=== PATIENT | male | born 1950 | race Two or more races ===

== ENCOUNTER 2025-05-17 05:29 | Inpatient (IN) | payer MEDICARE, OTHER ==
[~2025-05-17] VITALS: Ht 175.3 cm; Wt 81.2 kg
[2025-05-17] MEDS ORDERED: ONDANSETRON HCL/PF 4 MG/2 ML VIAL ONE (06:51)
[2025-05-17] MEDS: IV NS 0.9% 1,000 ML BAG IV ONE ×2 (06:53→08:10)
[2025-05-17] MEDS: ONDANSETRON HCL/PF 4 MG/2 ML VIAL IVP ONE (06:53)
[2025-05-17] MEDS ORDERED: CEFTRIAXONE 1GM BAG (ER ONLY) 50 ML IV ONE (07:06)
[2025-05-17] MEDS: CEFTRIAXONE 1 G in IV D5W 50 ML IV ONE (07:07)
[2025-05-17 07:10] LABS: PLATELET COUNT (AUTO) 531 K/uL (150-450); RED BLOOD CELL COUNT(AUTO) 4.38 MIL/uL (4.5-6.0); RED CELL DISTRIBUTION WIDTH 16.0 % (11.5-15.0); WHITE BLOOD COUNT (AUTO) 28.3 K/uL (4.3-11.0)
[2025-05-17 07:20] LABS: CALCIUM, SERUM 10.1 mg/dL (8.5-10.1); CREATININE 2.6 mg/dL (0.6-1.3); SODIUM SERUM 138.0 mmol/L (136-145); UREA NITROGEN, BLOOD 64.0 mg/dL (7-18)
[2025-05-17 07:26] LABS: ASPARTATE AMINOTRANSFERASE 19.0 U/L (15-37); TOTAL PROTEIN, SERUM 7.3 g/dL (6.4-8.2)
[2025-05-17 07:29] LABS: APPEARANCE,URINE TURBID (CLEAR); BLOOD, URINE TRACE-INTA Ery/uL (NEGATIVE); LEUKOCYTE ESTERASE ,URINE 2+ (NEGATIVE); NITRITE, URINE POSITIVE (NEGATIVE); UGLUCOSE NEGATIVE (NEGATIVE)
[2025-05-17 07:37] LABS: INR 1.09 (0.91-1.10)
[2025-05-17 07:38] LABS: ADD URINE CULTURE YES; SQUAMOUS EPITHELIAL CELL,UR Rare /HPF (None Seen)
[2025-05-17 07:43] LABS: LACTIC ACID 3.5 mmol/L (0.4-2.0)
[2025-05-17] MEDS: FLAGYL/NS RTU 500 MG/100 ML PIGGYBACK IV ONE (08:10)
[2025-05-17 08:15] VITALS: O2SAT 98
[2025-05-17] MEDS: ALBUTEROL FS 2.5 MG/3 ML VIAL.NEB NEB ONE (08:15)
[2025-05-17] MEDS ORDERED: ALBUTEROL FS 2.5 MG/3 ML VIAL.NEB ONE (08:18)
[2025-05-17] MEDS ORDERED: SODIUM BICARBONATE SYR 50 MEQ/50 ML DISP.SYRIN ONE (08:21)
[2025-05-17] MEDS ORDERED: CALCIUM CHLORIDE 1,000 MG/10 ML DISP.SYRIN ONE (08:21)
[2025-05-17] MEDS: CALCIUM CHLORIDE 1,000 MG/10 ML DISP.SYRIN IV ONE (08:29)
[2025-05-17] MEDS: SODIUM BICARBONATE SYR 50 MEQ/50 ML DISP.SYRIN IV ONE (08:30)
[2025-05-17 08:32] VITALS: O2SAT 99
[2025-05-17 08:33] VITALS: O2SAT 99
[2025-05-17 08:45] VITALS: O2SAT 100; O2SAT 99
[2025-05-17] MEDS: VANCOMYCIN 1 GM in IV D5W 250 ML IV ONE (09:05)
[2025-05-17] MEDS ORDERED: TAMS-12 PO (09:25)
[2025-05-17] MEDS ORDERED: MAGN400O6 PO (09:25)
[2025-05-17] MEDS ORDERED: BISA10SU11 RC (09:25)
[2025-05-17] MEDS ORDERED: GUAI100S9 PO (09:25)
[2025-05-17] MEDS ORDERED: ATOR80TA PO (09:25)
[2025-05-17] MEDS ORDERED: BENZ1LOZ58 PO (09:25)
[2025-05-17] MEDS ORDERED: CRAN425C6 PO (09:25)
[2025-05-17] MEDS ORDERED: ACET325T53 PO (09:25)
[2025-05-17] MEDS ORDERED: ATEN100T PO (09:25)
[2025-05-17] MEDS ORDERED: AMLO-212 PO (09:25)
[2025-05-17] MEDS ORDERED: LACT1CAP89 PO (09:25)
[2025-05-17] MEDS ORDERED: CLON0.1T PO (09:25)
[2025-05-17] MEDS ORDERED: ASPI-1420 PO (09:25)
[2025-05-17] MEDS ORDERED: LOSA1TAB15 PO (09:25)
[2025-05-17] MEDS ORDERED: ACET-73 PO (09:25)
[2025-05-17] MEDS ORDERED: BLOO-668 IN (09:25)
[2025-05-17] MEDS ORDERED: HYDR-500 PO (09:25)
[2025-05-17] MEDS ORDERED: ZINC56.713 TP (09:25)
[2025-05-17] MEDS ORDERED: IV NS 0.9% 1,000 ML IV SCH (09:30)
[2025-05-17] MEDS ORDERED: Z GUARD REMEDY 4 OZ OINT TP PRN (10:30)
[2025-05-17 11:11] LABS: CREATININE, URINE 148.3 MG/DL (30.0-125.0); URINE SODIUM, RANDOM 14.0 mmol/l (40-220); URINE TOTAL PROTEIN 147.1 mg/dL (0-11.9)
[2025-05-17] MEDS: PIPERACILLIN /TAZOBACTAM 2.25 G in IV D5W 50 ML IV SCH (12:00)
[2025-05-17 13:00] VITALS: BP 148/81; TEMP 97.5; O2SAT 97
[2025-05-17 16:05] LABS: CALCIUM, SERUM 9.5 mg/dL (8.5-10.1); CREATININE 3.1 mg/dL (0.6-1.3); SODIUM SERUM 142.0 mmol/L (136-145); UREA NITROGEN, BLOOD 69.0 mg/dL (7-18)
[2025-05-17] MEDS: IV NS 0.9% 1,000 ML IV PRN (17:50)
[2025-05-17] MEDS: ONDANSETRON HCL/PF 4 MG/2 ML VIAL IVP PRN (17:57)
[2025-05-17 21:00] VITALS: BP 105/68; TEMP 97.3; O2SAT 96
[2025-05-17] MEDS ORDERED: METRONIDAZOLE 500MG/ NS 100ML 500 MG in PREMIX 1 EA IV SCH (21:30)
[2025-05-17] MEDS ORDERED: CEFEPIME 1 GM in IV D5W 50 ML IV SCH (21:30)
[2025-05-17] MEDS ORDERED: CEFEPIME 1 GM VIAL ONE (22:55)
[2025-05-17] MEDS ORDERED: METRONIDAZOLE 500MG/ NS 100ML 100 ML IV ONE (22:56)
[2025-05-17] MEDS: CEFEPIME 1 GM in IV D5W 50 ML IV SCH (23:26)
[2025-05-18] MEDS ORDERED: IV NS 0.9% 250 ML IV PRN
[2025-05-18] MEDS: METRONIDAZOLE 500MG/ NS 100ML 500 MG in PREMIX 1 EA IV SCH ×2 (00:13→09:36)
[2025-05-18 05:00] VITALS: BP 115/70; TEMP 97.7; O2SAT 96
[2025-05-18 07:40] VITALS: O2SAT 96
[2025-05-18 13:00] VITALS: BP 96/87; TEMP 98.1; O2SAT 99
[2025-05-18 21:00] VITALS: BP 151/78; TEMP 97.5; O2SAT 99
[2025-05-19 00:07] LABS: ASPARTATE AMINOTRANSFERASE 18.0 U/L (15-37); CALCIUM, SERUM 8.6 mg/dL (8.5-10.1); CREATININE 3.7 mg/dL (0.6-1.3); PHOSPHORUS 5.1 mg/dL (2.5-4.9); SODIUM SERUM 141.0 mmol/L (136-145); TOTAL PROTEIN, SERUM 6.0 g/dL (6.4-8.2)
[2025-05-19] MEDS: ZOLPIDEM TARTRATE 5 MG TABLET PO PRN (00:07)
[2025-05-19] MEDS: ACETAMINOPHEN 325 MG TABLET PO PRN (00:08)
[2025-05-19 00:10] LABS: UREA NITROGEN, BLOOD 86.0 mg/dL (7-18)
[2025-05-19 04:00] VITALS: BP 144/72; TEMP 97.6; O2SAT 99
[2025-05-19 07:50] VITALS: O2SAT 99
[2025-05-19 16:00] VITALS: BP 132/65; TEMP 98.1; O2SAT 97
[2025-05-19] MEDS: IV NS 0.9% 1,000 ML IV PRN (18:21)
[2025-05-19 18:43] LABS: PLATELET COUNT (AUTO) 414 K/uL (150-450); RED BLOOD CELL COUNT(AUTO) 3.76 MIL/uL (4.5-6.0); RED CELL DISTRIBUTION WIDTH 16.3 % (11.5-15.0); WHITE BLOOD COUNT (AUTO) 16.0 K/uL (4.3-11.0)
[2025-05-19 19:26] LABS: ASPARTATE AMINOTRANSFERASE 15.0 U/L (15-37); CALCIUM, SERUM 8.3 mg/dL (8.5-10.1); CREATININE 3.3 mg/dL (0.6-1.3); PHOSPHORUS 4.1 mg/dL (2.5-4.9); SODIUM SERUM 143.0 mmol/L (136-145); TOTAL PROTEIN, SERUM 5.7 g/dL (6.4-8.2)
[2025-05-19 19:27] LABS: UREA NITROGEN, BLOOD 86.0 mg/dL (7-18)
[2025-05-19 20:00] VITALS: BP 146/76; TEMP 97.7; O2SAT 96
[2025-05-20 04:00] VITALS: BP 143/64; TEMP 97.9; O2SAT 98
[2025-05-20 07:33] LABS: PLATELET COUNT (AUTO) 411 K/uL (150-450); RED BLOOD CELL COUNT(AUTO) 3.38 MIL/uL (4.5-6.0); RED CELL DISTRIBUTION WIDTH 15.8 % (11.5-15.0); WHITE BLOOD COUNT (AUTO) 16.7 K/uL (4.3-11.0)
[2025-05-20 08:00] VITALS: BP_SYST 172; BP_SYST 175; BP_DIAS 85; BP_DIAS 89; TEMP 97.6; O2SAT 98
[2025-05-20 08:33] LABS: ASPARTATE AMINOTRANSFERASE 14.0 U/L (15-37); CALCIUM, SERUM 8.1 mg/dL (8.5-10.1); CREATININE 2.8 mg/dL (0.6-1.3); PHOSPHORUS 3.3 mg/dL (2.5-4.9); SODIUM SERUM 144.0 mmol/L (136-145); TOTAL PROTEIN, SERUM 5.3 g/dL (6.4-8.2); UREA NITROGEN, BLOOD 75.0 mg/dL (7-18)
[2025-05-20] MEDS: MEROPENEM 500 MG in IV NS 0.9% 50 ML IV SCH (10:19)
[2025-05-20 11:23] VITALS: BP 152/75; TEMP 97.7; O2SAT 99
[2025-05-20 16:00] VITALS: BP_SYST 177; BP_SYST 178; BP_DIAS 78; BP_DIAS 84; TEMP 97.5; O2SAT 99
[2025-05-20] MEDS: BLOOD SUGAR DIAGNOSTIC 1 EACH STRIP IN SCH (17:29)
[2025-05-20 20:00] VITALS: BP 146/65; TEMP 97.7; O2SAT 99
[2025-05-20] MEDS: ATORVASTATIN 40 MG TABLET PO SCH (21:23)
[2025-05-20] MEDS: TAMSULOSIN 0.4 MG CAP.SR.24H PO SCH (21:23)
[2025-05-21 04:00] VITALS: BP 147/71; TEMP 97.9; O2SAT 97
[2025-05-21 08:00] VITALS: BP_SYST 152; BP_SYST 178; BP_DIAS 83; TEMP 97.6; O2SAT 100
[2025-05-21] MEDS: ZINC OXIDE 56.7 GM TUBE TP SCH (08:48)
[2025-05-21] MEDS: ASPIRIN EC 81 MG TABLET.DR PO SCH (08:57)
[2025-05-21] MEDS: HYDROCHLOROTHIAZIDE 25 MG TABLET PO SCH (08:57)
[2025-05-21] MEDS: ATENOLOL 50 MG TABLET PO SCH (08:57)
[2025-05-21] MEDS: LOSARTAN POTASSIUM 50 MG TABLET PO SCH (08:58)
[2025-05-21] MEDS: AMLODIPINE BESYLATE 5 MG TABLET PO SCH (08:58)
[2025-05-21 16:00] VITALS: BP 155/75; TEMP 98.2; O2SAT 98
== END 2025-05-21 17:55 | DRG 871 ==
LOC: ER 06:34 → MEDSG1 13:33
PROVIDERS: ADMIT Internal Medicine; ATTEND Internal Medicine
PROC: 05HC33Z Insertion of Infusion Device into Left Basilic Vein, Percutaneous Approach (ICD-10-PCS; principal; 2025-05-21)
DX: A41.9 Sepsis, unspecified organism (principal); J15.9 Unspecified bacterial pneumonia; N17.9 Acute kidney failure, unspecified; E87.5 Hyperkalemia; B96.20 Unspecified Escherichia coli [E. coli] as the cause of diseases classified elsewhere; E11.22 Type 2 diabetes mellitus with diabetic chronic kidney disease; N39.0 Urinary tract infection, site not specified; R65.20 Severe sepsis without septic shock; I12.9 Hypertensive chronic kidney disease with stage 1 through stage 4 chronic kidney disease, or unspecified chronic kidney disease; F03.90 Unspecified dementia, unspecified severity, without behavioral disturbance, psychotic disturbance, mood disturbance, and anxiety; N18.9 Chronic kidney disease, unspecified; Z16.12 Extended spectrum beta lactamase (ESBL) resistance; E11.65 Type 2 diabetes mellitus with hyperglycemia; K52.9 Noninfective gastroenteritis and colitis, unspecified; D75.839 Thrombocytosis, unspecified; E78.5 Hyperlipidemia, unspecified; Z90.49 Acquired absence of other specified parts of digestive tract; Z90.81 Acquired absence of spleen; M15.9 Polyosteoarthritis, unspecified; Z79.82 Long term (current) use of aspirin; Z90.5 Acquired absence of kidney; T14.8XXS Other injury of unspecified body region, sequela; X95.9XXS Assault by unspecified firearm discharge, sequela; E86.9 Volume depletion, unspecified; Z86.73 Personal history of transient ischemic attack (TIA), and cerebral infarction without residual deficits; N40.0 Benign prostatic hyperplasia without lower urinary tract symptoms
CPT/HCPCS: 36415; 71045-TC; 76770-TC; 80048-TC; 80053-TC; 80076-TC; 81001; 82570-TC; 82962-TC; 83605-TC; 83690-TC; 83735-TC; 84100-TC; 84300-TC; 85025-TC; 85730-TC; 87040-TC; 87081-TC; 87086-TC; 87186-TC; 92526; 92611; 94799-TC; A4216; A4223; G0378; J0692; J0696; J2185; J2405; J2543; J3373; J3490; J7030; J7050; J7060